=== PATIENT | male | born 1950 | race Caucasian/White ===

== ENCOUNTER 2018-03-14 11:05 | Outpatient (CLI) | payer OTHER | END 2018-03-14 23:59 | disposition home or self-care (01) | LOC: 64 CT 11:05 | PROVIDERS: ATTEND Internal Medicine Critical Care Medicine | DX: K80.20 Calculus of gallbladder without cholecystitis without obstruction (principal); N20.0 Calculus of kidney; R18.8 Other ascites | CPT/HCPCS: 71250; 74176 ==